=== PATIENT | male | born 1970 | race African-American/Black ===

== ENCOUNTER 2018-11-29 17:35 | Emergency (ER) | payer OTHER, MEDICAID ==
[~2018-11-29] VITALS: Ht 188 cm; Wt 127.0 kg
--- NOTE | 2018-11-29 17:41 | NUR ---
PT VALARIE FROM [facility] D/T HIGH BLOOD PRESSURE; PT AAOX4, PT AMBULATORY, PT ON MONITOR, NAD NOTED. PENDING MD NOLASCO
--- NOTE | 2018-11-29 18:09 | NUR ---
SPOKE TO NANI AT [facility]TAKE, PT IS ACCEPTED AT [facility], BUT PT NEEDS TO BE MEDICALLY CLEARED, PT HAS A BED THERE. JUST NEEDS ALL PAPERWORKS FAXED WHEN CLEAR THEN CALL FOR TRANSPORT
[2018-11-29] MEDS ORDERED: AMLODIPINE BESYLATE 5 MG TABLET ONE (18:11)
[2018-11-29 18:15] LABS: BASOPHILS # (AUTO) 0.1 /CMM (0.0-0.2); EOSINOPHILS % (AUTO) 1.8 % (0.0-6.0); HEMATOCRIT 40 % (39-51); HEMOGLOBIN 13.4 g/dL (13.5-17.5); LYMPHOCYTES # (AUTO) 1.7 /CMM (0.8-4.8); LYMPHOCYTES % (AUTO) 23.1 % (20.0-44.0); MEAN CORPUSCULAR HGB CONC 33 g/dl (31.0-36.0); MEAN CORPUSCULAR VOLUME 84 fL (80-96); MONOCYTES # (AUTO) 0.7 /CMM (0.1-1.30); MONOCYTES % (AUTO) 9.1 % (2.0-12.0); NEUTROPHILS # (AUTO) 4.7 /CMM (1.8-8.9); PLATELET COUNT (AUTO) 278 /CMM (150-450); RED BLOOD CELL COUNT(AUTO) 4.81 MIL/uL (4.5-6.0); WHITE BLOOD COUNT (AUTO) 7.3 K/uL (4.3-11.0)
[2018-11-29 18:22] LABS: CALCIUM, SERUM 8.6 mg/dL (8.5-10.1); CARBON DIOXIDE 28 mmol/L (21-32); CHLORIDE 108 mmol/L (98-107); CREATININE 1.2 mg/dL (0.6-1.3); GLUCOSE 98 mg/dL (74-106); POTASSIUM 3.6 mmol/L (3.5-5.1); SODIUM SERUM 144 mmol/L (136-145); UREA NITROGEN, BLOOD 11 mg/dL (7-18)
[2018-11-29 18:28] LABS: ACETAMINOPHEN < 2 ug/ml (10-30); ALANINE AMINOTRANSFERASE 34 U/L (12-78); ALBUMIN 3.4 g/dL (3.4-5.0); ALCOHOL, BLOOD < 3 mg/dL (0-0); ALKALINE PHOSPHATASE 90 U/L (46-116); ASPARTATE AMINOTRANSFERASE 23 U/L (15-37); BILIRUBIN,DIRECT 0.1 mg/dL (0.0-0.2); BILIRUBIN,TOTAL 0.2 mg/dL (0.2-1.0); SALICYLATE 0.8 mg/dL (2.8-20.0)
[2018-11-29] MEDS ORDERED: AMLODIPINE BESYLATE 5 MG TABLET PO ONE (18:30)
[2018-11-29 18:36] LABS: APPEARANCE,URINE Clear (CLEAR); BILIRUBIN,URINE Negative (NEGATIVE); BLOOD, URINE Negative Ery/uL (NEGATIVE); COLOR,URINE Yellow (YELLOW); KETONES,URINE Trace (NEGATIVE); LEUKOCYTE ESTERASE ,URINE Negative (NEGATIVE); NITRITE, URINE Negative (NEGATIVE); PROTEIN,URINE Trace mg/dl (NEGATIVE); UGLUCOSE Negative (NEGATIVE); UROBILINOGEN,URINE 0.2 EU/dL (0.2)
--- NOTE | 2018-11-29 19:25 | NUR ---
RECEIVED ENDORSEMENT FROM ROD DORAN FOR [facility]
--- NOTE | 2018-11-29 19:40 | NUR ---
CALLED [facility] SPOKE WITH NAOMI. FAXED OVER CLINICALS. ONCE PACKET IS REVIEWED SHE WILL CALL US BACK WITH A BED.
[2018-11-29] MEDS ORDERED: IBUPROFEN 400 MG TABLET ONE (20:00)
[2018-11-29] MEDS ORDERED: IBUPROFEN 400 MG TABLET PO ONE (20:00)
--- NOTE | 2018-11-29 20:19 | NUR ---
Patient is resting comfortably in bed with eyes closed. Easily aroused. VSS
--- NOTE | 2018-11-29 21:03 | NUR ---
PT STILL HYPERTENSIVE, MD AWARE.
[2018-11-29] MEDS ORDERED: CLONIDINE HCL 0.1 MG TABLET ONE (21:07)
[2018-11-29] MEDS ORDERED: CLONIDINE HCL 0.1 MG TABLET PO ONE (21:30)
--- NOTE | 2018-11-29 22:03 | NUR ---
PT SLEEPING COMFORTABLY IN BED. NO COMPLAINTS AT THIS TIME. HTN PERSISTS. WILL CONT TO MONITOR.
--- NOTE | 2018-11-29 22:09 | NUR ---
SPOKE WITH MIKEY FROM [facility]. BP NOW IS 158/106, STILL NOT ACCEPTABLE. WILL RECHECK AND FOLLOW UP
--- NOTE | 2018-11-29 23:22 | NUR ---
PT TO BE TRANSFERRED TO [facility], UN[address]. NUMBER FOR REPORT: [id number]
--- NOTE | 2018-11-29 23:26 | NUR ---
CALLED [facility] FOR TRANSPORTATION. ETA 0230. TRIP NUMBER [id number]
--- NOTE | 2018-11-29 23:36 | NUR ---
REPORT GIVEN TO ZOEY AT [facility]. REQUESTS THAT WE CALL JUST BEFORE TRANSPORT FOR LATEST VITALS. NUMBER FOR REPORT: [id number]
--- NOTE | 2018-11-29 23:39 | NUR ---
CALLED [facility] FOR TRANSPORT ETA OF 0030 WAS GIVEN.
--- NOTE | 2018-11-30 00:29 | NUR ---
GAVE REPORT TO [facility] FOR TRANSPORTATION ANJEL
[2018-11-30 00:33] VITALS: BP 155/109
--- NOTE | 2018-11-30 00:35 | NUR ---
PT LEFT IN STABLE CONDITION, PT LEFT VIA [facility] AM[facility]ANCE TO [facility]. REPORT GIVEN TO [facility], AWARE OF CURRENT VS, AMBUALNCE STAFF AWARE. NAD, VSS.
== END 2018-11-30 00:35 ==
LOC: ER 17:40
DX: F32.9 Major depressive disorder, single episode, unspecified (principal); I10 Essential (primary) hypertension; F20.9 Schizophrenia, unspecified
CPT/HCPCS: 36415; 80048; 80076; 80305; 80307; 80329; 81001; 85025; 99285; G0480; 81000-TC